=== PATIENT | female | born 1960 | race Hispanic/Latino ===

== ENCOUNTER 2017-12-26 01:02 | Emergency (ER) | payer OTHER ==
[2017-12-26 02:00] VITALS: BP 131/79
[2017-12-26] MEDS ORDERED: TORADOL ONE (03:31)
[2017-12-26] MEDS ORDERED: TORADOL IM ONE (03:43)
--- NOTE | 2017-12-26 03:56 | Emergency Department Report ---
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 Pain is exacerbated by bending twisting and reaching pain is relieved by rest there is no numbness no tingling no saddle numbness no loss or decrease in bowel or bladder function patient remains ambulatory to baseline however prolonged status sitting or standing exacerbates pain MD Complaint: back injury Onset/Timin -: days(s) Similar Symptoms Previously: Yes Place: work Radiation: right leg Severity: moderate Severity scale (0 -10): 4 Quality: burning, sharp Consistency: constant Improves With: other (rest) Worsens With: movement, sitting upright Context: turning/twisting, bending Associated Symptoms: denies: confusion, weakness, chest pain, numbness, difficulty walking, cough, difficulty urinating, diaphoresis, incontinence, fever/chills, constipation, headaches, abdominal pain, loss of appetite, malaise , nausea/vomiting, rash, seizure, shortness of breath, syncope - Related Data Home Medications Medication Instructions Recorded Confirmed Last Taken ALPRAZolam [Xanax TAB] 0.5 mg PO HS PRN 12/26/17 12/26/17 1 Day Ago ~12/25/17 Levothyroxine Sodium [Synthroid] 125 mcg PO DAILY 12/26/17 12/26/17 1 Day Ago ~12/25/17 Lisinopril [Zestril TAB] 2.5 mg PO QDAY 12/26/17 12/26/17 1 Day Ago ~12/25/17 Nitroglycerin [Nitrostat] 0.4 mg SL PRN PRN 12/26/17 12/26/17 Unknown Sertraline [Zoloft] 100 mg PO DAILY 12/26/17 12/26/17 1 Day Ago ~12/25/17 Previous Rx's Medication Instructions Recorded Last Taken Type Cyclobenzaprine [Flexeril] 10 mg PO TID PRN #30 tablet 12/26/17 Unknown Rx Naproxen 500 mg PO BID #30 tablet 12/26/17 Unknown Rx Allergies Allergy/AdvReac Type Severity Reaction Status Date / Time aspirin Allergy Unknown Verified 08/09/15 09:33 codeine Allergy Unknown Verified 08/09/15 09:33 Penicillins Allergy Unknown Verified 08/09/15 09:33 ED Review of Systems ROS: Stated complaint: HIP PAIN Other details as noted in HPI Constitutional: denies: chills, fever Eyes: denies: eye pain, eye discharge, vision change ENT: denies: ear pain, throat pain Respiratory: denies: cough, shortness of breath, wheezing Cardiovascular: denies: chest pain, palpitations Endocrine: no symptoms reported Gastrointestinal: denies: abdominal pain, nausea, diarrhea Genitourinary: denies: urgency, dysuria, discharge Musculoskeletal: back pain, arthralgia, myalgia. denies: joint swelling Skin: denies: rash, lesions Neurological: denies: headache, weakness, numbness, paresthesias, confusion, abnormal gait, vertigo Psychiatric: denies: anxiety, depression Hematological/Lymphatic: denies: easy bleeding, easy bruising ED Past Medical Hx - Past Medical History Previous Medical History?: Yes Hx Hypertension: Yes Additional medical history: hypothyroid. Chronic back pain - Surgical History Past Surgical History?: No Additional Surgical History: thyroidectomy, 2013 - Social History Smoking Status: Never Smoker Substance Use Type: None - Medications Home Medications: Home Medications Medication Instructions Recorded Confirmed Last Taken Type ALPRAZolam [Xanax TAB] 0.5 mg PO HS PRN 12/26/17 12/26/17 1 Day Ago History ~12/25/17 Cyclobenzaprine [Flexeril] 10 mg PO TID PRN #30 tablet 12/26/17 Unknown Rx Levothyroxine Sodium [Synthroid] 125 mcg PO DAILY 12/26/17 12/26/17 1 Day Ago History ~12/25/17 Lisinopril [Zestril TAB] 2.5 mg PO QDAY 12/26/17 12/26/17 1 Day Ago History ~12/25/17 Naproxen 500 mg PO BID #30 tablet 12/26/17 Unknown Rx Nitroglycerin [Nitrostat] 0.4 mg SL PRN PRN 12/26/17 12/26/17 Unknown History Sertraline [Zoloft] 100 mg PO DAILY 12/26/17 12/26/17 1 Day Ago History ~12/25/17 ED Physical Exam - General Limitations: No Limitations General appearance: alert, in no apparent distress - Head Head exam: Present: atraumatic, normocephalic - Eye Eye exam: Present: normal appearance - ENT ENT exam: Present: mucous membranes moist - Neck Neck exam: Present: normal inspection - Respiratory Respiratory exam: Present: normal lung sounds bilaterally. Absent: respiratory distress, stridor - Cardiovascular Cardiovascular Exam: Present: regular rate, normal rhythm. Absent: systolic murmur, diastolic murmur, rubs, gallop - GI/Abdominal GI/Abdominal exam: Present: soft, normal bowel sounds. Absent: distended, tenderness, guarding, rebound, rigid, organomegaly, mass, bruit, pulsatile mass , hernia - Rectal Rectal exam: Present: deferred - Extremities Exam Extremities exam: Present: normal inspection, full ROM, normal capillary refill. Absent: tenderness, pedal edema, joint swelling, calf tenderness - Back Exam Back exam: Present: normal inspection, tenderness (right sciatic notch tenderness ), muscle spasm, paraspinal tenderness. Absent: CVA tenderness (R), CVA tenderness (L), vertebral tenderness, rash noted - Expanded Back Exam Expanded Back exam: Absent: saddle anesthesia Back exam: Sciatic Notch Tenderness: Right, Positive Straight Leg Raise: Right, Negative Straight Leg Raising: Left - Neurological Exam Neurological exam: Present: alert, oriented X3, CN II-XII intact, normal gait, reflexes normal - Expanded Neurological Exam Expanded Patient oriented to: Present: person, place, time Speech: Present: fluid speech Cranial nerves: EOM's Intact: Normal, Gag Reflex: Normal, Tongue Deviation: Normal, Nystagmus: Normal, Facial Sensation: Normal Cerebellar function: Finger to Nose: Normal, Heel to Romero: Normal, Romberg: Normal Upper motor neuron: Jovanni Neglect: Normal, Pronator Drift: Normal, Babinski Sign : Normal, Sensory Extinction: Normal Sensory exam: Upper Extremity Light Touch: Normal, Upper Extremity Pin Prick: Normal, Upper Extremity Temperature: Normal, UE 2 Point Discrimination: Normal, Lower Extremity Light Touch: Normal, Lower Extremity Pin Prick: Normal, Lower Extremity Temperature: Normal, LE 2 Point Discrimination: Normal Motor strength exam: RUE: 5, LUE: 5, RLE: 5, LLE: 5 DTR: knee (R): 2+, knee (L): 2+, ankle (R): 2+, ankle (L): 2+ Best Eye Response ([place]): (4) open spontaneously Best Motor Response ([place]): (6) obeys commands Best Verbal Response ([place]): (5) oriented Dasia Total: 15 - Psychiatric Psychiatric exam: Present: normal affect, normal mood, anxious - Skin Skin exam: Present: warm, dry, intact, normal color. Absent: rash ED Course Vital Signs 12/26/17 12/26/17 01:51 03:53 Temperature 97.9 F Pulse Rate 65 Respiratory 18 18 Rate Blood Pressure 131/79 O2 Sat by Pulse 98 Oximetry ED Medical Decision Making - Medical Decision Making Pain improved down to 3/ 10 patient advises ready to go she's had admitted to [place] today for vacation feels less tight plan: NSAIDs muscle relaxants moist heat therapy follow-up PCP in 2-3 days with DC with prescription for naproxen and Flexeril [place] patient will be DC'd to home in stable condition at this time patient verbalizes agreement and understanding of the same Critical care attestation.: If time is entered above; I have spent that time in minutes in the direct care of this critically ill patient, excluding procedure time. ED Disposition Clinical Impression: Low back strain Qualifiers: Encounter type: initial encounter Qualified Code(s): S39.012A - Strain of muscle, fascia and tendon of lower back, initial encounter Disposition: DC-01 TO HOME OR SELFCARE Is pt being admited?: No Does the pt Need Aspirin: No Condition: Good Instructions: Muscle Strain (ED), Low Back Strain (ED), Core Strengthening Exercises (GEN) Prescriptions: Cyclobenzaprine [Flexeril] 10 mg PO TID PRN #30 tablet PRN Reason: Muscle Spasm Naproxen 500 mg PO BID #30 tablet Referrals: NNAMDI SAINI MD [Primary Care Provider] - 3-5 Days Forms: Work/School Release Form(ED) Time of Disposition: 04:01
== END 2017-12-26 04:30 | disposition home or self-care (01) ==
LOC: ED 01:02
DX: S39.012A Strain of muscle, fascia and tendon of lower back, initial encounter (principal); I10 Essential (primary) hypertension; Z88.6 Allergy status to analgesic agent; Z88.0 Allergy status to penicillin; Z88.5 Allergy status to narcotic agent; X58.XXXA Exposure to other specified factors, initial encounter; Y93.89 Activity, other specified; Y99.8 Other external cause status; Y92.89 Other specified places as the place of occurrence of the external cause
CPT/HCPCS: 96372; 99282; J1885

== ENCOUNTER 2017-12-28 19:51 | Emergency (ER) | payer OTHER ==
[2017-12-28 19:58] VITALS: BP 121/75
[2017-12-28] MEDS ORDERED: MOTRIN PO ONE (21:08)
[2017-12-28] MEDS ORDERED: MOTRIN ONE (21:08)
--- NOTE | 2017-12-28 21:36 | Emergency Department Report ---
ED Back Pain/Injury HPI - General Chief Complaint: Back Pain/Injury Stated Complaint: RIGHT LEG PAIN Time Seen by Provider: 12/28/17 21:32 Source: patient Limitations: No Limitations - History of Present Illness Initial Comments: Patient here for back pain that radiates down her right leg and she was here in Thursday and was given Flexeril and Tylenol Extra Strength is not helping. She said she had a back x-ray last month and they said everything is normal and she left here on Thursday and went to [place]. She said her drove and her leg is still hurting. She says she is radiating from her back to her right lower extremity pain is 10 out of 10 tingling. Similar episode in the past. No orthopedic or primary care doctor. Denies any nausea or vomiting. Denies any loss of bowel or bladder function. Pain is worse with walking and better with rest. Denies any fever or chills. Denies any urinary burning frequency or urgency MD Complaint: back pain Onset/Timin -: days(s) Similar Symptoms Previously: Yes Place: home Radiation: right leg Severity: severe Severity scale (0 -10): 10 Quality: aching, tingling Consistency: constant Improves With: immobilization Worsens With: movement, walking Context: other (patient with history of back pain with radiculopathy) Associated Symptoms: difficulty walking. denies: confusion, weakness, chest pain, numbness, cough, difficulty urinating, diaphoresis, incontinence, fever/ chills, constipation, headaches, abdominal pain, loss of appetite, malaise, nausea/vomiting, rash, seizure, shortness of breath, syncope Treatments Prior to Arrival: acetaminophen, other (Flexeril) - Related Data Home Medications Medication Instructions Recorded Confirmed Last Taken ALPRAZolam [Xanax TAB] 0.5 mg PO HS PRN 12/26/17 12/26/17 1 Day Ago ~12/25/17 Levothyroxine Sodium [Synthroid] 125 mcg PO DAILY 12/26/17 12/26/17 1 Day Ago ~12/25/17 Lisinopril [Zestril TAB] 2.5 mg PO QDAY 12/26/17 12/26/17 1 Day Ago ~12/25/17 Nitroglycerin [Nitrostat] 0.4 mg SL PRN PRN 12/26/17 12/26/17 Unknown Sertraline [Zoloft] 100 mg PO DAILY 12/26/17 12/26/17 1 Day Ago ~12/25/17 Previous Rx's Medication Instructions Recorded Last Taken Type Acetaminophen [Tylenol Extra 1,000 mg PO QID #60 tablet 12/26/17 Unknown Rx Strength] Cyclobenzaprine [Flexeril] 10 mg PO TID PRN #30 tablet 12/26/17 Unknown Rx Menthol/Camphor [[place] 1 applicatio TP TID #1 tube 12/26/17 Unknown Rx Ointment] Naproxen 500 mg PO BID #30 tablet 12/26/17 Unknown Rx Allergies Allergy/AdvReac Type Severity Reaction Status Date / Time aspirin Allergy Unknown Verified 08/09/15 09:33 codeine Allergy Unknown Verified 08/09/15 09:33 naproxen Allergy Hives Verified 12/26/17 04:29 Penicillins Allergy Unknown Verified 08/09/15 09:33 ED Review of Systems ROS: Stated complaint: RIGHT LEG PAIN Other details as noted in HPI Constitutional: denies: chills, fever Eyes: denies: eye pain ENT: denies: epistaxis, congestion Respiratory: denies: cough, orthopnea, shortness of breath, SOB with exertion, SOB at rest, stridor, wheezing Cardiovascular: denies: chest pain, palpitations, edema, syncope Gastrointestinal: denies: abdominal pain, nausea, vomiting, diarrhea, constipation Genitourinary: denies: urgency, dysuria, discharge Musculoskeletal: back pain, arthralgia. denies: joint swelling, myalgia Skin: denies: rash, lesions Neurological: paresthesias. denies: headache, weakness, abnormal gait, vertigo ED Past Medical Hx - Past Medical History Previous Medical History?: Yes Hx Hypertension: Yes Additional medical history: hypothyroid. Chronic back pain - Surgical History Past Surgical History?: Yes Additional Surgical History: thyroidectomy, 2014 - Family History Family history: hypertension - Social History Smoking Status: Never Smoker Substance Use Type: Alcohol Other Social History: and lives at home - Medications Home Medications: Home Medications Medication Instructions Recorded Confirmed Last Taken Type ALPRAZolam [Xanax TAB] 0.5 mg PO HS PRN 12/26/17 12/26/17 1 Day Ago History ~12/25/17 Acetaminophen [Tylenol Extra 1,000 mg PO QID #60 tablet 12/26/17 Unknown Rx Strength] Cyclobenzaprine [Flexeril] 10 mg PO TID PRN #30 tablet 12/26/17 Unknown Rx Levothyroxine Sodium [Synthroid] 125 mcg PO DAILY 12/26/17 12/26/17 1 Day Ago History ~12/25/17 Lisinopril [Zestril TAB] 2.5 mg PO QDAY 12/26/17 12/26/17 1 Day Ago History ~12/25/17 Menthol/Camphor [[place] 1 applicatio TP TID #1 tube 12/26/17 Unknown Rx Ointment] Naproxen 500 mg PO BID #30 tablet 12/26/17 Unknown Rx Nitroglycerin [Nitrostat] 0.4 mg SL PRN PRN 12/26/17 12/26/17 Unknown History Sertraline [Zoloft] 100 mg PO DAILY 12/26/17 12/26/17 1 Day Ago History ~12/25/17 ED Physical Exam - General Limitations: No Limitations General appearance: alert, in no apparent distress - Head Head exam: Present: atraumatic, normocephalic, normal inspection - Eye Eye exam: Present: normal appearance, PERRL, EOMI Pupils: Present: normal accommodation - ENT ENT exam: Present: normal exam, normal orophraynx, mucous membranes moist, TM's normal bilaterally, normal external ear exam - Neck Neck exam: Present: normal inspection, full ROM. Absent: tenderness, lymphadenopathy - Respiratory Respiratory exam: Present: normal lung sounds bilaterally, chest wall tenderness. Absent: respiratory distress, accessory muscle use - Cardiovascular Cardiovascular Exam: Present: regular rate, normal rhythm, normal heart sounds. Absent: systolic murmur, diastolic murmur - GI/Abdominal GI/Abdominal exam: Present: soft, normal bowel sounds. Absent: tenderness - Extremities Exam Extremities exam: Present: normal inspection, full ROM, normal capillary refill , other (no clubbing, cyanosis or edema. +2 pulses to all extremities and no neurovascular compromise at). Absent: tenderness, pedal edema, joint swelling, calf tenderness - Back Exam Back exam: Present: normal inspection, full ROM, other (ambulates without any difficulties). Absent: tenderness, CVA tenderness (R), CVA tenderness (L), muscle spasm, paraspinal tenderness, vertebral tenderness, rash noted - Expanded Back Exam Expanded Back exam: Absent: saddle anesthesia Back exam: Negative Straight Leg Raising: Left, Right - Neurological Exam Neurological exam: Present: alert, oriented X3, normal gait, reflexes normal, other (no gross focal neurological deficit). Absent: motor sensory deficit - Psychiatric Psychiatric exam: Present: normal affect, normal mood - Skin Skin exam: Present: warm, dry, intact, normal color. Absent: rash ED Course Vital Signs 12/28/17 12/28/17 19:51 19:58 Temperature 97.8 F 97.8 F Pulse Rate 73 60 Respiratory 20 20 Rate Blood Pressure 121/75 121/75 O2 Sat by Pulse 97 97 Oximetry - Reevaluation(s) Reevaluation #1: 12/28/17 23:20 Patient received Motrin 800 mg po in emergency room hydrocodone 5/325 2 tablets and Decadron 10 mg IM. Pain better ED Medical Decision Making - Medical Decision Making ED course: Diagnosis 1: Acute exacerbation of chronic low back pain 2 :chronic right lumbar radiculopathy Pain is better Patient has no neurological deficit based on examination. She has no vertebral tenderness. Patient given Motrin 800 mg. Emergency room and additional [place] 5/325 2 tablets and Decadron 10 mg IM for relief of pain. Auto signs are stable and she is afebrile Educated on Diagnosis, Medication and treatment plan explained and I discussed the patient she needs to follow up with orthopedic doctor for her chronic pain. I discussed with her that she needs to continue to take her Flexeril and Tylenol as previously ordered. Patient discharged home to continue her Tylenol and Flexeril as previously ordered 3 days ago. Discharge home with her in stable condition. Critical care attestation.: If time is entered above; I have spent that time in minutes in the direct care of this critically ill patient, excluding procedure time. ED Disposition Clinical Impression: Acute exacerbation of chronic low back pain, Chronic radicular lumbar pain Disposition: TO HOME OR SELFCARE Is pt being admited?: No Does the pt Need Aspirin: No Condition: Stable Instructions: Chronic Back Pain (ED), Lumbar Radiculopathy (ED) Additional Instructions: Follow-up with orthopedic doctor as scheduled Take Tylenol and Flexeril as previously prescribed Rest Referrals: ROSALIE MATIAS MD [Primary Care Provider] - 2-3 Days CLAUDIA TINAJERO MD [Staff Physician] - 3-5 Days
[2017-12-28] MEDS ORDERED: DECADRON IM ONE (21:37)
[2017-12-28] MEDS ORDERED: NORCO 5/325 PO ONE (21:39)
== END 2017-12-28 23:30 | disposition home or self-care (01) ==
LOC: ED 19:51
DX: G89.29 Other chronic pain (principal); M54.5 Low back pain; I10 Essential (primary) hypertension; Z88.6 Allergy status to analgesic agent; Z88.0 Allergy status to penicillin; Z88.8 Allergy status to other drugs, medicaments and biological substances
CPT/HCPCS: 96372; 99282; J1100